=== PATIENT | female | born 1965 | race Caucasian/White ===

== ENCOUNTER 2016-09-10 | Emergency (ER) | payer MEDICAID | END 2016-09-10 12:07 | disposition home or self-care (01) | DX: J06.9 Acute upper respiratory infection, unspecified (principal) ==

== ENCOUNTER 2017-10-26 12:56 | Emergency (ER) | payer MEDICAID ==
[2017-10-26] MEDS ORDERED: DEXAMETHASONE 10 MG/ML VIAL PO STA (14:51)
[2017-10-26] MEDS ORDERED: KETOROLAC 60 MG/2 ML VIAL IM STA (14:51)
[2017-10-26] MEDS ORDERED: HYDROmorphone 1 MG/ML CARPUJECT IM STA (16:22)
--- NOTE | 2017-10-26 16:39 | ED Physician Documentation ---
PD HPI BACK PAIN - Stated complaint Stated Complaint: SCIATIC SPASMS/PX - Chief complaint Chief Complaint: Back Pain - History obtained from History obtained from: Patient - History of Present Illness Timing - onset: How many days ago (7) Timing - details: Still present Location: Lower Quality: Pain, Spasm, Similar to prior episodes Associated symptoms: No: Fever, Weakness, Incontinent of urine Worsened by: Movement, Twisting Similar symptoms before: Diagnosis (history of back spasms) - Additional information Additional information: The patient is a 52-year-old female who complains of lower back pain radiating down both legs. Her pain started 7 days ago after helping clean an apartment. She reports muscular spasms. She denies fever, abdominal pain, or weakness. She complains of tingling in her hands and her feet. She has been using naproxen without relief. She has history of similar symptoms in the past, but the last time was about 10 years ago. Review of Systems Constitutional: denies: Fever Nose: denies: Congestion Throat: denies: Sore throat Cardiac: denies: Chest pain / pressure Respiratory: denies: Dyspnea, Cough GI: denies: Abdominal Pain, Nausea, Vomiting : denies: Dysuria, Incontinent Skin: denies: Rash Musculoskeletal: reports: Back pain Neurologic: reports: Numbness (Tingling in fingers and feet.). denies: Focal weakness, Headache PD PAST MEDICAL HISTORY - Past Medical History Past Medical History: Yes Cardiovascular: None Respiratory: None Endocrine/Autoimmune: None Musculoskeletal: Chronic back pain - Past Surgical History Past Surgical History: No - Present Medications Home Medications: Ambulatory Orders Medication Instructions Recorded Confirmed Cyclobenzaprine [Flexeril] 10 mg PO TID PRN #20 tablet 10/26/17 HYDROcod/ACETAM 5/325 [Vicodin 1 ea PO Q6H PRN #15 tablet 10/26/17 5/325] Metoprolol Tartrate 1 tab PO DAILY 10/26/17 10/26/17 predniSONE [Prednisone] 30 mg PO DAILY #15 tablet 10/26/17 - Allergies Allergies/Adverse Reactions: Allergies Allergy/AdvReac Type Severity Reaction Status Date / Time epinephrine Allergy Unknown Verified 10/26/17 14:07 promethazine [From Phenergan] Allergy Hallucinati Verified 10/26/17 14:07 ons - Social History Does the pt smoke?: No Smoking Status: Never smoker Does the pt drink ETOH?: No Does the pt have substance abuse?: No - Immunizations Immunizations are current?: Yes - POLST Patient has POLST: No PD ED PE NORMAL - Vitals Vital signs reviewed: Yes (normal) - General General: Alert and oriented X 3, Well developed/nourished, Other (Appears uncomfortable, sitting rigidly in the chair.) - HEENT HEENT: Atraumatic - Neck Neck: No bony TTP - Cardiac Cardiac: RRR, No murmur - Respiratory Respiratory: No respiratory distress, Clear bilaterally - Abdomen Abdomen: Soft, Non tender - Back Back: No CVA TTP, Other (Tenderness to palpation in the paralumbar musculature bilaterally. Straight leg raise test is positive bilaterally at 30 elevation.) - Derm Derm: No rash - Extremities Extremities: No edema, No calf tenderness / cord - Neuro Neuro: Alert and oriented X 3, No motor deficit, No sensory deficit, Other ( Deep tendon reflexes are 2+ and equal bilaterally at patellar and Achilles tendons.) Results - Vitals Vitals: Oxygen O2 Source Room air PD MEDICAL DECISION MAKING - ED course Complexity details: reviewed results, re-evaluated patient, considered differential, d/w patient, d/w family ED course: The patient's presentation is most consistent with lower back strain, with sciatica. Her presentation does not suggest epidural abscess, cauda equina syndrome, or spinal stenosis. Treatment in the emergency department included administration of dexamethasone 10 mg orally, ketorolac 60 mg IM, followed later by hydromorphone 1 mg IM. On repeat evaluation the patient's pain is slightly improved over her initial presentation. She has no neurologic deficit on exam, but straight leg raise is positive bilaterally. She is being discharged with prescriptions for Flexeril, prednisone, and Vicodin , 15 tablets. I discussed with her and her symptomatic treatment and outpatient follow-up, as well as potentially worrisome signs or symptoms that should prompt reevaluation in the emergency department. Departure - Departure Disposition: 01 Home, Self Care Clinical Impression: Back pain Qualifiers: Back pain location: low back pain Chronicity: acute Back pain laterality: bilateral Sciatica presence: with sciatica Sciatica laterality: bilateral sciatica Qualified Code(s): M54.42 - Lumbago with sciatica, left side Condition: Stable Instructions: ED Sciatica Follow-Up: [facility] [Provider Group] Prescriptions: Cyclobenzaprine [Flexeril] 10 mg PO TID PRN #20 tablet PRN Reason: Spasms HYDROcod/ACETAM 5/325 [Vicodin 5/325] 1 ea PO Q6H PRN #15 tablet PRN Reason: Pain predniSONE [Prednisone] 30 mg PO DAILY #15 tablet Comments: Apply ice pack to your lower back intermittently for the next 3 or 4 days. You can use Flexeril as prescribed if needed for muscle spasms. You can continue to use naproxen for its anti-inflammatory effect. You can use prednisone as prescribed for 5 days. You can use Vicodin as prescribed if needed for pain. Follow up with your primary physician. Call to schedule next available appointment. Return to the emergency department if you develop increasing pain, increasing numbness or weakness, or otherwise worsening symptoms. Discharge Date/Time: 10/26/17 16:56
[2017-10-26 16:47] VITALS: BP 125/54
== END 2017-10-26 16:56 | disposition home or self-care (01) ==
LOC: ED 12:56
DX: M54.42 Lumbago with sciatica, left side (principal); M54.41 Lumbago with sciatica, right side
CPT/HCPCS: 96372; 99283; J1170

== ENCOUNTER 2018-01-21 08:49 | Emergency (ER) | payer MEDICAID ==
--- NOTE | 2018-01-21 10:21 | ED Physician Documentation ---
History of Present Illness - Stated complaint Stated Complaint: SINUS PRESSURE,LOST VOICE - Chief complaint Chief Complaint: Heent - Additonal information Additional information: hx from pt 52 f hx sinusitis maxillary sinus pressure and foul drainage and ear pressure and now loss of voice for 3 weeks taking gauf OTC s relief also using steam sinus cleanse Review of Systems Constitutional: denies: Fever, Chills Ears: reports: Ear pain Nose: reports: Congestion, Sinus pressure / pain Throat: denies: Sore throat (loss of voice) Cardiac: denies: Chest pain / pressure Respiratory: denies: Dyspnea, Cough Endocrine: denies: Easy bruising / bleeding Immunocompromised: denies: Immunocompromised PD PAST MEDICAL HISTORY - Past Medical History Past Medical History: Yes Cardiovascular: None, Arrhythmia Respiratory: None Endocrine/Autoimmune: None Musculoskeletal: Chronic back pain Other Past Medical History: Prolapsed valve - Past Surgical History 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 HEENT: Other - Present Medications Home Medications: Ambulatory Orders Medication Instructions Recorded Confirmed Metoprolol Tartrate 1 tab PO DAILY 10/26/17 10/26/17 Azithromycin [Zithromax] 250 mg PO DAILY #6 tablet 01/21/18 Fluticasone [Flonase] 1 sprays GEORGI BID PRN #1 bottle 01/21/18 - Allergies Allergies/Adverse Reactions: Allergies Allergy/AdvReac Type Severity Reaction Status Date / Time epinephrine Allergy Unknown Verified 10/26/17 14:07 promethazine [From Phenergan] Allergy Hallucinati Verified 10/26/17 14:07 ons - Social History Does the pt smoke?: No Smoking Status: Never smoker Does the pt drink ETOH?: Yes Does the pt have substance abuse?: No - Immunizations Immunizations are current?: Yes - POLST Patient has POLST: No PD ED PE NORMAL - Vitals Vital signs reviewed: Yes - General General: Alert and oriented X 3 - HEENT HEENT: Moist mucous membranes, Other (hoarse voice). No: Ears normal (dull and retracted ana), Pharynx benign (PND and cobblestoning) - Neck Neck: Supple, no meningeal sign - Cardiac Cardiac: RRR - Respiratory Respiratory: No respiratory distress, Clear bilaterally - Derm Derm: Normal color - Neuro Neuro: Alert and oriented X 3 Results - Vitals Vitals: Vital Signs - 24 hr 01/21/18 08:55 Temperature 36.4 C L Heart Rate 52 L Respiratory 18 Rate Blood Pressure 113/75 O2 Saturation 99 Oxygen O2 Source Room air PD MEDICAL DECISION MAKING - ED course ED course: states cannot take sudafed 2/2 heart report all to augmentin 3 weeks of sinus sx despite OTC tx most sinus ifnections viral or allergic but worsening sx X 3 weeks and now with maxillary swelling and purulent PND will rx zmax - Sepsis Event Vital Signs: Vital Signs - 24 hr 01/21/18 08:55 Temperature 36.4 C L Heart Rate 52 L Respiratory 18 Rate Blood Pressure 113/75 O2 Saturation 99 Oxygen O2 Source Room air Departure - Departure Disposition: Home, Self Care Clinical Impression: Sinusitis Qualifiers: Sinusitis location: maxillary Chronicity: subacute Qualified Code(s): J01.00 - Acute maxillary sinusitis, unspecified Condition: Good Instructions: ED Sinusitis Abx Tx Prescriptions: Azithromycin [Zithromax] 250 mg PO DAILY #6 tablet Fluticasone [Flonase] 1 sprays GEORGI BID PRN #1 bottle PRN Reason: allergies Comments: The steam is good but consider a sinus irrigation system like the tello pot as well
[2018-01-21 10:33] VITALS: BP 127/80
== END 2018-01-21 10:32 | disposition home or self-care (01) ==
LOC: ED 08:49
DX: J01.00 Acute maxillary sinusitis, unspecified (principal)
CPT/HCPCS: 99283

== ENCOUNTER 2018-09-07 18:49 | Emergency (ER) | payer MEDICAID ==
[2018-09-07 18:59] VITALS: BP 122/64
[2018-09-07 19:19] LABS: BILIRUBIN,URINE NEGATIVE (NEGATIVE); GLUCOSE, URINE (UA) NEGATIVE (NEGATIVE); KETONES,URINE (UA) TRACE mg/dL (NEGATIVE); LEUKOCYTE ESTERASE, URINE NEGATIVE (NEGATIVE); NITRITE,URINE NEGATIVE (NEGATIVE); OCCULT BLOOD,URINE MODERATE (NEGATIVE); PH,URINE 5.5 PH (5.0-7.5); PROTEIN,URINE NEGATIVE (NEGATIVE); UROBILINOGEN,URINE 0.2 (NORMAL) E.U./dL (NORMAL)
[2018-09-07 19:20] LABS: CLARITY,URINE CLEAR (CLEAR)
[2018-09-07 19:21] LABS: HCG UR QUAL NEGATIVE
[2018-09-07 19:37] LABS: BACTERIA,URINE Moderate /HPF (None Seen); SQUAMOUS EPITHELIAL CELL,UR MOD Squamous (<= Few)
--- NOTE | 2018-09-07 21:39 | ED Physician Documentation ---
PD HPI FEMALE - Stated complaint Stated Complaint: FEMALE - Chief complaint Chief Complaint: UTI - History obtained from History obtained from: Patient - History of Present Illness Timing - duration: Months Timing - details: Gradual onset Pain level max: 3 Associated symptoms: Dysuria, Urinary frequency Contributing factors: No: Similar symptoms before: Has not had sx before Recently seen: Not recently seen - Additional information Additional information: c/o left lower back and flank pain x months, now bilateral since this morning. no exacerbating or ameliorating factors. 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 HEENT: Other - Present Medications Home Medications: Ambulatory Orders Medication Instructions Recorded Confirmed Metoprolol Tartrate 1 tab PO DAILY 10/26/17 10/26/17 Nitrofurantoin Monohyd/M-Cryst 100 mg PO BID #10 capsule 09/07/18 [Macrobid 100 mg Capsule] - Allergies Allergies/Adverse Reactions: Allergies Allergy/AdvReac Type Severity Reaction Status Date / Time epinephrine Allergy Unknown Verified 10/26/17 14:07 promethazine [From Phenergan] Allergy Hallucinati Verified 09/07/18 18:59 ons - Social History Does the pt smoke?: No Smoking Status: Never smoker Does the pt drink ETOH?: Yes Does the pt have substance abuse?: No - Immunizations Immunizations are current?: Yes - POLST Patient has POLST: No PD ED PE NORMAL - Vitals Vital signs reviewed: Yes - General General: Alert and oriented X 3, No acute distress, Well developed/nourished - Abdomen Abdomen: Soft, Non tender - Back Back: No CVA TTP, No spinal TTP - Derm Derm: Normal color, Warm and dry, No rash Results - Vitals Vitals: Oxygen O2 Source Room air - Labs Labs: Laboratory Tests 09/07/18 09/07/18 19:10 19:10 Urine Color YELLOW Urine Clarity CLEAR Urine pH 5.5 Ur Specific [place] >=1.030 H >=1.030 H Urine Protein NEGATIVE Urine Glucose (UA) NEGATIVE Urine Ketones TRACE Urine Occult Blood MODERATE H Urine Nitrite NEGATIVE Urine Bilirubin NEGATIVE Urine Urobilinogen 0.2 (NORMAL) Ur Leukocyte Esterase NEGATIVE Urine RBC 6-10 H Urine WBC 4-5 Ur Squamous Epith Cells MOD Squamous H Urine Bacteria Moderate H Ur Microscopic Review INDICATED Urine Culture Comments NOT INDICATED Urine HCG, Qual NEGATIVE PD MEDICAL DECISION MAKING - ED course Complexity details: reviewed results, re-evaluated patient, considered differential, d/w patient ED course: will treat for UTI, although I explained my doubts that this would explain the ongoing back/flank pain x months. she does endorse urinary frequency and dysuria, and, with UA results, it is reasonable to try a course of abx. Unfortunately, there are too many squamous cells for culture. I explained this to her and offered option of sending another sample, but she feels she cannot produce another sample at this time. After further discussion, we agreed that we will treat empirically for uti and she can return if worse and f/u with PMD if not improving. as discussed, she might need further testing if her back discomfort does not resolve with abx. Departure - Departure Disposition: 01 Home, Self Care Clinical Impression: Urinary tract infection Condition: Good Instructions: Urinary Tract Infecs Women Prescriptions: Nitrofurantoin Monohyd/M-Cryst [Macrobid 100 mg Capsule] 100 mg PO BID #10 capsule Discharge Date/Time: 09/07/18 22:12
[2018-09-07] MEDS ORDERED: NITROFURANTOIN MACRO 100 MG CAPSULE PO STA (21:55)
== END 2018-09-07 22:12 | disposition home or self-care (01) ==
LOC: ED 18:49
DX: N39.0 Urinary tract infection, site not specified (principal); G89.29 Other chronic pain; M54.5 Low back pain
CPT/HCPCS: 81001; 81025; 99282; 99283; A9270; 81003; 87086

== ENCOUNTER 2018-11-10 12:39 | Emergency (ER) | payer SELFPAY ==
--- NOTE | 2018-11-10 12:55 | ED Physician Documentation ---
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 HEENT: Other - Present Medications Home Medications: Ambulatory Orders Medication Instructions Recorded Confirmed Metoprolol Tartrate 1 tab PO DAILY 10/26/17 10/26/17 Nitrofurantoin Monohyd/M-Cryst 100 mg PO BID #10 capsule 09/07/18 [Macrobid 100 mg Capsule] - Allergies Allergies/Adverse Reactions: Allergies Allergy/AdvReac Type Severity Reaction Status Date / Time epinephrine Allergy Unknown Verified 10/26/17 14:07 promethazine [From Phenergan] Allergy Hallucinati Verified 09/07/18 18:59 ons - Social History Does the pt smoke?: No Smoking Status: Never smoker Does the pt drink ETOH?: Yes Does the pt have substance abuse?: No - Immunizations Immunizations are current?: Yes - POLST Patient has POLST: No Results - Vitals Vitals: Vital Signs - 24 hr 11/10/18 12:44 Temperature 37.2 C Heart Rate 70 Respiratory 18 Rate Blood Pressure 146/79 H O2 Saturation 99 Oxygen O2 Source Room air
[2018-11-10] MEDS ORDERED: ASPIRIN CHEW 81 MG TABLET PO STA (13:00)
--- NOTE | 2018-11-10 13:02 | ED Physician Documentation ---
PD HPI CHEST PAIN - Stated complaint Stated Complaint: CP - Chief complaint Chief Complaint: Cardiac - History obtained from History obtained from: Patient, Family - History of Present Illness Pain level max: 8 Pain level now: 6 Quality: Sharp Location: Left chest Radiation: Other (Nonradiating) Improved by: Nothing Worsened by: No: Exertion, Inspiration, Eating, Movement, Palpation, Position Associated symptoms: No: Shortness of air, Diaphoresis, Nausea, Vomiting, Feeling faint / dizzy, General Weakness, Palpitations, Cough Similar symptoms before: Diagnosis (Similar symptoms 3 years ago, no cause found.) Recently seen: Not recently seen - Additional information Additional information: 53-year-old female with sharp left-sided chest pain since earlier today, she does not recall exactly when the symptoms started but thinks that she may have woken up with them. 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: Other - Present Medications Home Medications: Ambulatory Orders Medication Instructions Recorded Confirmed Metoprolol Tartrate 1 tab PO DAILY 10/26/17 10/26/17 Nitrofurantoin Monohyd/M-Cryst 100 mg PO BID #10 capsule 09/07/18 [Macrobid 100 mg Capsule] - Allergies Allergies/Adverse Reactions: Allergies Allergy/AdvReac Type Severity Reaction Status Date / Time epinephrine Allergy Unknown Verified 10/26/17 14:07 promethazine [From Phenergan] Allergy Hallucinati Verified 09/07/18 18:59 ons - Social History Does the pt smoke?: No Smoking Status: Never smoker Does the pt drink ETOH?: Yes Does the pt have substance abuse?: No - Immunizations Immunizations are current?: Yes - POLST Patient has POLST: No PD ED PE NORMAL - Vitals Vital signs reviewed: Yes - General General: Alert and oriented X 3, No acute distress, Well developed/nourished - HEENT HEENT: Moist mucous membranes - Neck Neck: Supple, no meningeal sign - Cardiac Cardiac: RRR, Strong equal pulses - Respiratory Respiratory: No respiratory distress, Clear bilaterally - Abdomen Abdomen: Soft, Non tender, Non distended - Derm Derm: Warm and dry, Other (Tender palpation across the left anterior chest wall. Reproduces pain.) - Extremities Extremities: No edema, No calf tenderness / cord - Neuro Neuro: Alert and oriented X 3 - Psych Psych: Normal mood, Normal affect Results - Vitals Vitals: Vital Signs - 24 hr 11/10/18 11/10/18 11/10/18 12:44 12:59 15:08 Temperature 37.2 C Heart Rate 70 82 86 Respiratory 18 18 13 Rate Blood Pressure 146/79 H 137/75 H 124/82 H O2 Saturation 99 99 100 Oxygen O2 Source Room air - EKG (time done) 1251 Rate: Rate (enter#) (69) Rhythm: NSR [place]: Normal Intervals: Normal SC QRS: Normal Ischemia: Non specific changes - Labs Labs: Laboratory Tests 11/10/18 11/10/18 11/10/18 13:10 13:10 13:10 WBC 7.0 RBC 4.95 Hgb 14.9 Hct 45.1 MCV 91.1 MCH 30.0 MCHC 32.9 RDW 14.0 Plt Count 273 MPV 7.6 L Neut # (Auto) 4.4 Lymph # (Auto) 1.8 [place] # (Auto) 0.7 Eos # (Auto) 0.1 Baso # (Auto) 0.0 Absolute Nucleated RBC 0.00 Nucleated RBC % 0.1 Sodium 138 Potassium 4.0 Chloride 99 L Carbon Dioxide 28 Anion Gap 11.0 BUN 13 Creatinine 0.8 Estimated GFR (MDRD) 75 L Glucose 101 H Calcium 9.1 Total Bilirubin 0.7 AST 19 ALT 18 Alkaline Phosphatase 86 Troponin I < 0.04 Total Protein 7.5 Albumin 4.2 Globulin 3.3 Albumin/Globulin Ratio 1.3 Lipase 35 11/10/18 15:00 WBC RBC Hgb Hct MCV MCH MCHC RDW Plt Count MPV Neut # (Auto) Lymph # (Auto) [place] # (Auto) Eos # (Auto) Baso # (Auto) Absolute Nucleated RBC Nucleated RBC % Sodium Potassium Chloride Carbon Dioxide Anion Gap BUN Creatinine Estimated GFR (MDRD) Glucose Calcium Total Bilirubin AST ALT Alkaline Phosphatase Troponin I < 0.04 Total Protein Albumin Globulin Albumin/Globulin Ratio Lipase - Rads (name of study) Chest x-ray Radiology: Prelim report reviewed, EMP read contemporaneously, See rad report (No acute disease) PD MEDICAL DECISION MAKING - ED course Complexity details: reviewed results, re-evaluated patient, considered differential (No ST elevation [place], no aortic dissection, no PE, no tension pneumothorax, no aortic aneurysm), d/w patient ED course: 53-year-old female with atypical chest pain. She was given aspirin upon arrival. Negative troponin x2. Normal EKG. No acute findings on chest x-ray. She is tender over the chest wall, possible costochondritis? No evidence of pulmonary embolus. No hypoxia. No tachycardia. Patient counseled regarding signs and symptoms for which I believe and urgent re-evaluation would be necessary. Patient with good understanding of and agreement to plan and is comfortable going home at this time This document was made in part using voice recognition software. While efforts are made to proofread this document, sound alike and grammatical errors may occur. Departure - Departure Disposition: 01 Home, Self Care Clinical Impression: Chest pain Qualifiers: Chest pain type: unspecified Qualified Code(s): R07.9 - Chest pain, unspecified Condition: Good Instructions: ED Chest Pain Atypical Unkn Cause Follow-Up: Your,doctor in 3 days [Other] Comments: You should start on a baby aspirin daily 81mg. Return if you worsen. The cause of your symptoms is unclear today. You should also follow-up with your telecommunications facility examiner for further evaluation and care. You should have a cardiac stress test scheduled within the next week with your doctor. Discharge Date/Time: 11/10/18 16:05
[2018-11-10 13:20] LABS: BASOPHILS % (AUTO) 0.4 %; EOSINOPHILS # (AUTO) 0.1 10^3/uL (0.0-0.7); EOSINOPHILS % (AUTO) 0.9 %; HGB - HEMOGLOBIN 14.9 g/dL (12.0-16.0); LYMPHOCYTES # (AUTO) 1.8 10^3/uL (1.5-3.5); MEAN CORPUSCULAR HGB CONC 32.9 g/dL (32.0-36.0); MEAN CORPUSCULAR VOLUME 91.1 fL (81.0-99.0); MEAN PLATELET VOLUME 7.6 fL (7.9-10.8); MONOCYTES # (AUTO) 0.7 10^3/uL (0.0-1.0); MONOCYTES % (AUTO) 9.4 %; NEUTROPHILS # (AUTO) 4.4 10^3/uL (1.5-6.6); NEUTROPHILS % (AUTO) 63.3 %; PLT - PLATELET COUNT 273 10^3/uL (130-450); RED BLOOD COUNT 4.95 10^6/uL (4.20-5.40)
--- NOTE | 2018-11-10 13:30 | XRAY Report ---
Reason: Chest Pain Procedure Date: 11/10/2018 Accession Number: [id number] / [id number] Procedure: XR - Chest 1 View X-Ray CPT Code: 18529 FULL RESULT: EXAM: CHEST RADIOGRAPHY EXAM DATE: 11/10/2018 01:04 PM. CLINICAL HISTORY: Chest Pain. COMPARISON: 11/14/2008 5:56 PM. TECHNIQUE: 1 view. FINDINGS: Lungs/Pleura: No focal opacities evident. No pleural effusion. No pneumothorax. Mediastinum: Within exam limitations, the cardiomediastinal contour is normal. Other: None. IMPRESSION: No focal consolidation. RADIA
[2018-11-10 13:33] LABS: ALBUMIN 4.2 g/dL (3.2-5.5); ALBUMIN/GLOBULIN RATIO 1.3 (1.0-2.2); BILIRUBIN,TOTAL 0.7 mg/dL (0.2-1.0); CALCIUM 9.1 mg/dL (8.5-10.3); CREATININE 0.8 mg/dL (0.4-1.0); TOTAL PROTEIN 7.5 g/dL (6.7-8.2)
[2018-11-10] MEDS ORDERED: KETOROLAC 30 MG/ML VIAL IVP STA (13:43)
[2018-11-10 15:08] VITALS: BP 124/82
== END 2018-11-10 16:05 | disposition home or self-care (01) ==
LOC: ED 12:39
DX: R07.9 Chest pain, unspecified (principal)
CPT/HCPCS: 36415; 71045; 80053; 83690; 84484; 85025; 93005; 99283; A9270

== ENCOUNTER 2020-07-03 14:57 | Outpatient (CLI) | payer OTHER | END 2020-07-03 14:58 | disposition home or self-care (01) | LOC: LAB 14:57 | PROVIDERS: ATTEND Internal Medicine | DX: Z20.828 Contact with and (suspected) exposure to other viral communicable diseases (principal) | CPT/HCPCS: 86769 ==

== ENCOUNTER 2021-04-21 19:58 | Outpatient (CLI) | payer SELFPAY | END 2021-04-21 19:59 | disposition critical access hospital (66) | LOC: EMS 19:58 | DX: R05 Cough (principal); R43.8 Other disturbances of smell and taste | CPT/HCPCS: A0425; A0429 ==

== ENCOUNTER 2021-04-21 20:21 | Emergency (ER) | payer SELFPAY ==
--- NOTE | 2021-04-21 20:38 | ED Physician Documentation ---
History of Present Illness - Stated complaint Stated Complaint: GENERAL WEAKNESS - Chief complaint Chief Complaint: General - History obtained from History obtained from: Patient - Additonal information Additional information: 55yF with pmh raynaud, dvt (now resolved), bigeminy on metoprolol p/w myalgias X 8 days with intermittent fevers, nonproductive cough (now improving) and nausea with nbnb vomitus. patient was told to come in by a family member who is an RN. States she feels poorly but her symptoms are improving from earlier in the week. 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 denies cp, soa, abdominal pain. denies leg swelling or hemoptysis. no pleurisy Review of Systems Ten Systems: 10 systems reviewed and negative Constitutional: reports: Fever, Chills, Myalgias, Fatigue Cardiac: denies: Chest pain / pressure Respiratory: reports: Cough GI: reports: Nausea, Vomiting PD PAST MEDICAL HISTORY - Past Medical History Cardiovascular: None, Arrhythmia Respiratory: None Neuro: None Endocrine/Autoimmune: None SOD CUTTER: None : None HEENT: None Psych: None Musculoskeletal: Chronic back pain - Past Surgical History Past Surgical History: Yes /SOD CUTTER: section HEENT: Other - Present Medications Home Medications: Ambulatory Orders Medication Instructions Recorded Confirmed Metoprolol Tartrate 1 tab PO DAILY 10/26/17 10/26/17 Nitrofurantoin Monohyd/M-Cryst 100 mg PO BID #10 capsule 09/07/18 [Macrobid 100 mg Capsule] Ondansetron Odt [Zofran Odt] 4 mg TL Q6H PRN #10 tablet 04/21/21 - Allergies Allergies/Adverse Reactions: Allergies Allergy/AdvReac Type Severity Reaction Status Date / Time epinephrine Allergy Unknown Verified 04/21/21 20:32 promethazine [From Phenergan] Allergy Hallucinati Verified 04/21/21 20:32 ons - Social History Does the pt smoke?: No Smoking Status: Never smoker Does the pt drink ETOH?: Yes Does the pt have substance abuse?: No - Immunizations Immunizations are current?: Yes - POLST Patient has POLST: No PD ED PE NORMAL - Vitals Vital signs reviewed: Yes - General General: Alert and oriented X 3, No acute distress, Well developed/nourished - HEENT HEENT: Atraumatic, PERRL, EOMI, Moist mucous membranes - Neck Neck: Supple, no meningeal sign - Cardiac Cardiac: RRR - Respiratory Respiratory: No respiratory distress, Clear bilaterally - Abdomen Abdomen: Non tender, Non distended - Derm Derm: Normal color, Warm and dry - Extremities Extremities: No deformity, No edema - Neuro Neuro: Alert and oriented X 3 - Psych Psych: Normal mood, Normal affect Results - Vitals Vitals: Vital Signs - 24 hr 04/21/21 20:32 Temperature 36.9 C Heart Rate 97 Respiratory 18 Rate Blood Pressure 130/85 H O2 Saturation 95 Oxygen O2 Source Room air PD MEDICAL DECISION MAKING - ED course ED course: 55yF presents with covid-19 symptoms. patient is unvaccinated. low suspicion for PE (Wells score 1.5 for prior dvt - low risk 1.3% probability of pe), however I did provide info on the symptoms of PE and reasons for emergent return to the ED. I also d/w her the option of bloodwork/admitting to hospital for oxygen therapy given her mild drop in o2 sat however she states her respiratory symptoms have actually been improving and she would rather go home if her nausea can be controlled. oral zofran provided and patient is tolerating oral fluids. covid swab sent. return precautions given. Departure - Departure Disposition: 01 Home, Self Care Clinical Impression: Myalgia, 2019 novel coronavirus vaccination not done, Fever, Cough Condition: Stable Instructions: COVID-19 [facility], COVID-19 [facility] Department Statement Prescriptions: Ondansetron Odt [Zofran Odt] 4 mg TL Q6H PRN #10 tablet PRN Reason: Nausea / Vomiting Comments: You were seen in the emergency department for evaluation for possible covid-19. A nasal swab was done and will result in 2-3 days. We will call if the result is positive. You can view your results on the patient health portal by making an account on the [id number] website. Please return to the emergency department if you experience leg swelling on one side more than the other, worsening shortness of breath, coughing up blood, or severe chest pain. You should follow up with your primary doctor via telehealth.
[2021-04-21] MEDS ORDERED: ONDANSETRON ODT 4 MG TABLET TL STA (21:09)
[2021-04-21] MEDS ORDERED: ONDANSETRON ODT 4 MG Prepack 2 TL PRN (22:48)
[2021-04-21 22:59] VITALS: BP 121/73
== END 2021-04-21 23:59 | disposition home or self-care (01) ==
LOC: EDUNIT# → ED 20:21
DX: U07.1 COVID-19 (principal); R11.2 Nausea with vomiting, unspecified; R50.9 Fever, unspecified; R05 Cough; M79.10 Myalgia, unspecified site
CPT/HCPCS: 87635; 99283; Q0162

== ENCOUNTER 2021-04-21 23:48 | Outpatient (CLI) | payer SELFPAY | END 2021-04-21 23:49 | disposition home or self-care (01) | LOC: EMS 23:48 | PROVIDERS: ATTEND Emergency Medicine | DX: U07.1 COVID-19 (principal) | CPT/HCPCS: A0425; A0428 ==

== ENCOUNTER 2021-06-26 14:46 | Outpatient (CLI) | payer SELFPAY | END 2021-06-26 14:47 | disposition short-term general hospital (02) | LOC: EMS 14:46 | DX: I49.9 Cardiac arrhythmia, unspecified (principal); R42 Dizziness and giddiness | CPT/HCPCS: A0425; A0427 ==

== ENCOUNTER 2022-01-20 16:04 | Outpatient (CLI) | payer OTHER | END 2022-01-20 16:05 | disposition short-term general hospital (02) | LOC: EMS 16:04 | DX: R00.2 Palpitations (principal) | CPT/HCPCS: A0425; A0427 ==

== ENCOUNTER 2024-03-22 16:15 | Emergency (ER) | payer MEDICAID, OTHER ==
[2024-03-22 16:48] VITALS: BP 112/78; O2SAT 100
[2024-03-22] MEDS: RABIES VACCINE 2.5 UNIT SYRINGE IM ONE (17:00)
[2024-03-22 17:04] LABS: BASOPHILS % (AUTO) 0.1 %; EOSINOPHILS # (AUTO) 0.1 10^3/uL (0.0-0.7); EOSINOPHILS % (AUTO) 0.9 %; HCT - HEMATOCRIT 44.5 % (37.0-47.0); HGB - HEMOGLOBIN 14.2 g/dL (12.0-16.0); LYMPHOCYTES # (AUTO) 2.2 10^3/uL (1.5-3.5); MEAN CORPUSCULAR HEMOGLOBIN 29.6 pg (27.0-31.0); MEAN CORPUSCULAR HGB CONC 31.9 g/dL (32.0-36.0); MEAN CORPUSCULAR VOLUME 92.9 fL (81.0-99.0); MEAN PLATELET VOLUME 9.8 fL (7.9-10.8); MONOCYTES # (AUTO) 0.6 10^3/uL (0.0-1.0); MONOCYTES % (AUTO) 7.6 %; NEUTROPHILS # (AUTO) 4.5 10^3/uL (1.5-6.6); NEUTROPHILS % (AUTO) 61.1 %; PLT - PLATELET COUNT 239 10^3/uL (130-450); RED BLOOD COUNT 4.79 10^6/uL (4.20-5.40); RED CELL DISTRIBUTION WIDTH 13.3 % (12.0-15.0); WHITE BLOOD COUNT 7.4 x10^3/uL (4.8-10.8)
[2024-03-22 17:39] LABS: THYROID STIMULATING HORMONE 1.59 uIU/mL (0.34-5.60)
[2024-03-22 17:49] LABS: ALBUMIN 4.2 g/dL (3.2-5.5); ALBUMIN/GLOBULIN RATIO 1.6 (1.0-2.2); BILIRUBIN,TOTAL 0.3 mg/dL (0.2-1.0); CALCIUM 9.2 mg/dL (8.5-10.3); CREATININE 0.7 mg/dL (0.6-1.3); POTASSIUM 3.8 mmol/L (3.5-4.5); TOTAL PROTEIN 6.9 g/dL (6.4-8.9)
--- NOTE | 2024-03-22 18:03 | ED Physician Documentation ---
History of Present Illness - Stated complaint Stated Complaint: ANIMAL BITE - Chief complaint Chief Complaint: General - History obtained from History obtained from: Patient - History of Present Illness Pain level max: 0 Pain level now: 0 - Additonal information Additional information: 58 year old female states that she was bit by a bat about a month ago. Seen at the walk in clinic and sent here for rabies vaccination. States has had unintentional weight loss over the past few months. States increased thirst and hunger over that same time. Is following up with her PCP for this. Has no history of rabies vaccination. Review of Systems Constitutional: denies: Fever, Chills Nose: denies: Rhinorrhea / runny nose Throat: denies: Sore throat Cardiac: denies: Chest pain / pressure Respiratory: denies: Cough GI: denies: Abdominal Pain, Nausea, Vomiting, Diarrhea : denies: Dysuria, Frequency Skin: denies: Rash Musculoskeletal: denies: Neck pain, Back pain Neurologic: denies: Headache PD PAST MEDICAL HISTORY - Past Medical History Cardiovascular: None, Arrhythmia Respiratory: None Neuro: None Endocrine/Autoimmune: None PET STYLIST: None : None HEENT: None Psych: None Musculoskeletal: Chronic back pain - Past Surgical History Past Surgical History: Yes /PET STYLIST: section HEENT: Other - Present Medications Home Medications: Ambulatory Orders Medication Instructions Recorded Confirmed Metoprolol Tartrate 1 tab PO DAILY 10/26/17 10/26/17 Nitrofurantoin Monohyd/M-Cryst 100 mg PO BID #10 capsule 09/07/18 [Macrobid 100 mg Capsule] Ondansetron Odt [Zofran Odt] 4 mg TL Q6H PRN #10 tablet 04/21/21 - Allergies Allergies/Adverse Reactions: Allergies Allergy/AdvReac Type Severity Reaction Status Date / Time epinephrine Allergy Unknown Verified 03/22/24 16:38 promethazine [From Phenergan] Allergy Hallucinati Verified 03/22/24 16:38 ons - Social History Does the pt smoke?: No Smoking Status: Never smoker Does the pt drink ETOH?: Yes Does the pt have substance abuse?: No - Immunizations Immunizations are current?: Yes - POLST Patient has POLST: No PD ED PE NORMAL - Vitals Vital signs reviewed: Yes - General General: Alert and oriented X 3, No acute distress, Well developed/nourished - HEENT HEENT: Moist mucous membranes - Neck Neck: Supple, no meningeal sign - Cardiac Cardiac: RRR - Respiratory Respiratory: No respiratory distress, Clear bilaterally - Abdomen Abdomen: Soft, Non tender, Non distended - Derm Derm: Warm and dry - Extremities Extremities: No calf tenderness / cord - Neuro Neuro: Alert and oriented X 3 - Psych Psych: Normal mood, Normal affect Results - Vitals Vitals: Vital Signs - 24 hr 03/22/24 03/22/24 16:26 18:12 Temperature 36.4 C L 36.6 C Heart Rate 58 L 58 L Respiratory 20 20 Rate Blood Pressure 112/78 112/78 O2 Saturation 100 100 Oxygen O2 Source Room air - Labs Labs: Laboratory Tests 03/22/24 03/22/24 16:55 16:55 WBC 7.4 RBC 4.79 Hgb 14.2 Hct 44.5 MCV 92.9 MCH 29.6 MCHC 31.9 L RDW 13.3 Plt Count 239 MPV 9.8 Neut # (Auto) 4.5 Lymph # (Auto) 2.2 [place] # (Auto) 0.6 Eos # (Auto) 0.1 Baso # (Auto) 0.0 Absolute Nucleated RBC 0.00 Nucleated RBC % 0.0 Sodium 137 Potassium 3.8 Chloride 100 L Carbon Dioxide 30 Anion Gap 7.0 BUN 15 Creatinine 0.7 Estimated GFR (MDRD) 86 L Glucose 96 Calcium 9.2 Total Bilirubin 0.3 AST 16 ALT 15 Alkaline Phosphatase 96 Total Protein 6.9 Albumin 4.2 Globulin 2.7 Albumin/Globulin Ratio 1.6 Lipase 50 TSH 1.59 Free T4 Direct 0.76 PD Medical Decision Making - ED course Complexity details: reviewed results, re-evaluated patient, considered differential, d/w patient ED course: Patient given her rabies vaccination. Exposure over 1 month ago. immunoglobulin unlikely to be of any use, discussed with pharmacist Dr. Heaton who agrees. No significant lab abnormalities. Will need further workup for unintentional weight loss with her PCP. Will continue rabies vaccination series. Patient counseled regarding signs and symptoms for which I believe an urgent re-evaluation would be necessary. Patient with good understanding of and agreement to plan and is comfortable going home at this time. This document was made in part using voice recognition software. While efforts are made to proofread this document, sound alike and grammatical errors may occur. Departure - Departure Disposition: 01 Home, Self Care Clinical Impression: Need for rabies vaccination, Weight loss Condition: Good Instructions: Rabies Vaccine Series Instructions Follow-Up: Orestes Fan MD [Primary Care Provider] - Comments: Your first rabies vaccination was today. Your next rabies vaccination will be due on March 25, your next will be April 01 and then April 08. As it is a holiday on Monday, you will need to return to the emergency department for this. After that you can have them scheduled with the [facility] clinic. Your laboratory testing does not show any significant abnormalities today. You should follow-up with your doctor regarding your unintentional weight loss. Forms: PCP List Discharge Date/Time: 03/22/24 18:14
[2024-03-22 21:57] LABS: ESTIMATED AVERAGE GLUCOSE 114 mg/dL (70-100); HEMOGLOBIN A1c% 5.6 % (4.27-6.07)
== END 2024-03-22 18:14 | disposition home or self-care (01) ==
LOC: ED 16:15
DX: R63.4 Abnormal weight loss (principal); R63.1 Polydipsia; R63.2 Polyphagia; Z23 Encounter for immunization
CPT/HCPCS: 36415; 80053; 83036; 83690; 84439; 84443; 85025; 90471; 99283

== ENCOUNTER 2024-03-25 07:55 | Emergency (ER) | payer MEDICAID, OTHER ==
[2024-03-25 08:05] VITALS: BP 130/65; O2SAT 100
--- NOTE | 2024-03-25 08:08 | ED Physician Documentation ---
History of Present Illness - Stated complaint Stated Complaint: RABIES SHOT - Chief complaint Chief Complaint: General - History obtained from History obtained from: Patient - History of Present Illness Timing: Other (The patient is here for her second of 4 rabies vaccines. She received the first 1 3 days ago which was about a month after a bat bite exposure so she is giving the vaccine without immunoglobulin aftter discussion with pharmacist.) PD PAST MEDICAL HISTORY - Past Medical History Cardiovascular: None, Arrhythmia Respiratory: None Neuro: None Endocrine/Autoimmune: None SYSTEM MANAGER: None : None HEENT: None Psych: None Musculoskeletal: Chronic back pain - Past Surgical History Past Surgical History: Yes /SYSTEM MANAGER: section HEENT: Other - Present Medications Home Medications: Ambulatory Orders Medication Instructions Recorded Confirmed Metoprolol Tartrate 1 tab PO DAILY 10/26/17 10/26/17 Nitrofurantoin Monohyd/M-Cryst 100 mg PO BID #10 capsule 09/07/18 [Macrobid 100 mg Capsule] Ondansetron Odt [Zofran Odt] 4 mg TL Q6H PRN #10 tablet 04/21/21 - Allergies Allergies/Adverse Reactions: Allergies Allergy/AdvReac Type Severity Reaction Status Date / Time epinephrine Allergy Unknown Verified 03/25/24 08:02 promethazine [From Phenergan] Allergy Hallucinati Verified 03/25/24 08:02 ons - Social History Does the pt smoke?: No Smoking Status: Never smoker Does the pt drink ETOH?: Yes Does the pt have substance abuse?: No - Immunizations Immunizations are current?: Yes - POLST Patient has POLST: No Results - Vitals Vitals: Vital Signs - 24 hr 03/25/24 08:02 Temperature 36.7 C Heart Rate 48 L Respiratory 16 Rate Blood Pressure 130/65 O2 Saturation 100 Oxygen O2 Source Room air PD Medical Decision Making - ED course Complexity details: considered differential (She is here for the second of her series of 4 rabies vaccines. She had gotten the first 1 3 days ago. She describes a local soreness at the arm but no general symptoms.), d/w patient Departure - Departure Disposition: 01 Home, Self Care Clinical Impression: Need for rabies vaccination Condition: Stable Record reviewed to determine appropriate education?: Yes Follow-Up: Orestes Fan MD [Primary Care Provider] - Comments: You have 2 more vaccines in the series, a week from now and 2 weeks from now. Forms: PCP List
[2024-03-25] MEDS: RABIES VACCINE 2.5 UNIT SYRINGE IM ONE (08:36)
== END 2024-03-25 08:40 | disposition home or self-care (01) ==
LOC: ED 07:55
DX: Z23 Encounter for immunization (principal); Z20.3 Contact with and (suspected) exposure to rabies
CPT/HCPCS: 90471

== ENCOUNTER 2024-04-01 06:47 | Emergency (ER) | payer MEDICAID ==
[2024-04-01] MEDS: RABIES VACCINE 2.5 UNIT SYRINGE IM ONE (07:20)
--- NOTE | 2024-04-01 07:22 | ED Physician Documentation ---
History of Present Illness - Stated complaint Stated Complaint: RABIES SHOT - Chief complaint Chief Complaint: General - History obtained from History obtained from: Patient (She is here for 3 out of 4 rabies vaccines after a bat exposure without specific complaints. 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 : None HEENT: None Psych: None Musculoskeletal: Chronic back pain - Past Surgical History Past Surgical History: Yes /WASTEWATER SUPERINTENDENT: section HEENT: Other - Present Medications Home Medications: Ambulatory Orders Medication Instructions Recorded Confirmed Metoprolol Tartrate 1 tab PO DAILY 10/26/17 10/26/17 Nitrofurantoin Monohyd/M-Cryst 100 mg PO BID #10 capsule 09/07/18 [Macrobid 100 mg Capsule] Ondansetron Odt [Zofran Odt] 4 mg TL Q6H PRN #10 tablet 04/21/21 - Allergies Allergies/Adverse Reactions: Allergies Allergy/AdvReac Type Severity Reaction Status Date / Time epinephrine Allergy Unknown Verified 04/01/24 07:15 promethazine [From Phenergan] Allergy Hallucinati Verified 04/01/24 07:15 ons - Social History Does the pt smoke?: No Smoking Status: Never smoker Does the pt drink ETOH?: Yes Does the pt have substance abuse?: No - Immunizations Immunizations are current?: Yes - POLST Patient has POLST: No PD ED PE NORMAL - Vitals Vital signs reviewed: Yes - General General: Alert and oriented X 3 Results - Vitals Vitals: Vital Signs - 24 hr 04/01/24 07:13 Temperature 35.7 C L Heart Rate 73 Respiratory 20 Rate Blood Pressure 120/66 O2 Saturation 99 Oxygen O2 Source Room air Departure - Departure Disposition: 01 Home, Self Care Clinical Impression: Need for rabies vaccination Condition: Good Record reviewed to determine appropriate education?: Yes Instructions: Rabies Vaccine suspension for injection Comments: Return in 1 week for the final rabies vaccine. Sooner for new or worsening symptoms.
[2024-04-01 07:35] VITALS: BP 122/68; O2SAT 98
== END 2024-04-01 07:30 | disposition home or self-care (01) ==
LOC: ED 06:47
DX: Z23 Encounter for immunization (principal); Z20.3 Contact with and (suspected) exposure to rabies
CPT/HCPCS: 90471

== ENCOUNTER 2024-04-08 07:22 | Emergency (ER) | payer MEDICAID ==
--- NOTE | 2024-04-08 07:28 | ED Physician Documentation ---
History of Present Illness - Stated complaint Stated Complaint: RABIES SHOT - History obtained from History obtained from: Patient (She is here for the final rabies shot. She has no specific complaints. 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 : None HEENT: None Psych: None Musculoskeletal: Chronic back pain - Past Surgical History Past Surgical History: Yes /PROFESSOR OF BIOCHEMISTRY: section HEENT: Other - Present Medications Home Medications: Ambulatory Orders Medication Instructions Recorded Confirmed Metoprolol Tartrate 1 tab PO DAILY 10/26/17 10/26/17 Nitrofurantoin Monohyd/M-Cryst 100 mg PO BID #10 capsule 09/07/18 [Macrobid 100 mg Capsule] Ondansetron Odt [Zofran Odt] 4 mg TL Q6H PRN #10 tablet 04/21/21 - Allergies Allergies/Adverse Reactions: Allergies Allergy/AdvReac Type Severity Reaction Status Date / Time epinephrine Allergy Unknown Verified 04/01/24 07:15 promethazine [From Phenergan] Allergy Hallucinati Verified 04/01/24 07:15 ons - Social History Does the pt smoke?: No Smoking Status: Never smoker Does the pt drink ETOH?: Yes Does the pt have substance abuse?: No - Immunizations Immunizations are current?: Yes - POLST Patient has POLST: No PD ED PE NORMAL - Vitals Vital signs reviewed: Yes - General General: Alert and oriented X 3, No acute distress - Neuro Neuro: Alert and oriented X 3 - Psych Psych: Normal mood, Normal affect Results - Vitals Vitals: Oxygen O2 Source Room air Departure - Departure Disposition: 01 Home, Self Care Clinical Impression: Need for rabies vaccination Condition: Good Record reviewed to determine appropriate education?: Yes Instructions: Rabies Vaccine suspension for injection Comments: You were seen today for the final rabies shot, you are now fully vaccinated but do need to seek medical care again should you be exposed to a bat again. Follow-up with primary care for routine care when you have the ability to do so.
[2024-04-08 07:35] VITALS: BP 116/60; O2SAT 100
[2024-04-08] MEDS: RABIES VACCINE 2.5 UNIT SYRINGE IM ONE (07:36)
== END 2024-04-08 07:41 | disposition home or self-care (01) ==
LOC: ED 07:22
DX: Z20.3 Contact with and (suspected) exposure to rabies (principal); Z23 Encounter for immunization; Z29.14 Encounter for prophylactic rabies immune globulin
CPT/HCPCS: 90471; 99283